=== PATIENT | female | born 1975 | race Caucasian/White ===

== ENCOUNTER 2018-06-25 | Emergency (ER) | payer OTHER ==
[~2018-06-25] MED LIST: ADDERALL 20 MG20 MG PO; BACTRIM DS 8001 TA1 PO; CIPRO; CIPROFLOXACIN500 MG PO; COLACE100 MG PO; CYCLOBENZAPRINE10 MG PO; HYDROCODONE BIT1 T11 PO; KEFLEX500 MG PO; MOTRIN800 MG PO; NKHM; PERCOCET 325 MG1 TA2 PO; PYRIDIUM200 MG PO; TESSALON PERLE200 MG PO; ZITHROMAX Z PA250 MG PO; ZITHROMAX250 MG PO; ZOLPIDEM5 MG PO
[2018-06-25 18:15] LABS: BASO # 0.1 10*3/uL (0.0-0.1); BASO % 0.5 % (0.0-1.0); EOS # 0.2 10*3/uL (0.0-0.4); EOS % 1.6 % (1.0-4.0); HEMATOCRIT 44.5 % (37.0-47.0); HEMOGLOBIN 13.9 g/dl (12.0-16.0); LYMPH # 2.8 10*3/uL (1.3-4.4); LYMPH % 25.3 % (27.0-41.0); MEAN CELL VOLUME 94.3 fl (81.0-99.0); MEAN CORPUSCULAR HGB 29.4 pg (27.0-31.0); MEAN CORPUSCULAR HGB CONC 31.2 g/dl (33.0-37.0); MEAN PLATELET VOLUME 8.7 fl (9.6-12.3); MONO # 0.5 10*3/uL (0.1-1.0); MONO % 4.8 % (3.0-9.0); NEUT # 7.4 10*3/uL (2.3-7.9); NEUT % 67.5 % (47.0-73.0); PLATELET COUNT AUTOMATED 382 10*3/uL (130-400); RED BLOOD COUNT 4.72 10*6/uL (4.10-5.10); RED CELL DISTRI WIDTH 14.1 % (0-14.5); WHITE BLOOD COUNT 10.9 10*3/uL (4.8-10.8)
[2018-06-25 18:33] LABS: ALKALINE PHOSPHATASE 53 U/L (45-117); BUN 17 mg/dl (7-24); CHLORIDE 109 mmol/L (98-107); CREATININE 0.73 mg/dL (0.55-1.02); POTASSIUM 3.6 mmol/L (3.5-5.1); SGOT/AST 14 IU/L (3-35); SGPT/ALT 25 U/L (12-78); SODIUM 143 mmol/L (136-145); TOTAL PROTEIN 7.4 gm/dL (6.4-8.2)
[2018-06-25 18:34] LABS: BILIRUBIN NEGATIVE (NEGATIVE); BLOOD NEGATIVE (NEGATIVE); CLARITY CLEAR (CLEAR); COLOR YELLOW (YELLOW); GLUCOSE NEGATIVE (NEGATIVE); KETONE NEGATIVE (NEGATIVE); LEUKO ESTERASE NEGATIVE (NEGATIVE); NITRITE NEGATIVE (NEGATIVE); UROBILINOGEN 0.2 E.U./dl (0.2-1.0)
[2018-06-25 18:49] LABS: BACTERIA TRACE; EPITHELIAL CELLS 30-35; RBC 0-2 rbc/hpf (0-2); WBC 0-2 wbc/hpf (0-5)
[2018-06-25] MEDS ORDERED: ROBAXIN500 M1 PO (20:28)
[2018-06-25] MEDS ORDERED: NAPROSYN500 MG PO (20:28)
== END 2018-06-25 20:40 | disposition home or self-care (01) ==
PROVIDERS: Nurse Practitioner Family
DX: S39.011A Strain of muscle, fascia and tendon of abdomen, initial encounter (principal); Z87.442 Personal history of urinary calculi; Z91.041 Radiographic dye allergy status; Z88.0 Allergy status to penicillin; Z88.1 Allergy status to other antibiotic agents; Z88.2 Allergy status to sulfonamides; Z79.899 Other long term (current) drug therapy; X58.XXXA Exposure to other specified factors, initial encounter; Y93.89 Activity, other specified; Y92.89 Other specified places as the place of occurrence of the external cause; Y99.8 Other external cause status

== ENCOUNTER 2019-09-16 18:56 | Emergency (ER) | payer BC ==
[~2019-09-16] VITALS: Ht 170.1 cm; Wt 49.9 kg
[~2019-09-16 18:56] MED LIST changes: +NAPROSYN500 MG PO; +ROBAXIN500 M1 PO
[2019-09-16] MEDS ORDERED: MIXED AMPHETAMI30 MG PO (19:01)
[2019-09-16] MEDS ORDERED: VIBRAMYCIN100 MG PO ×2 (20:19→20:21)
== END 2019-09-16 20:25 | disposition home or self-care (01) ==
LOC: ED 18:56
DX: B34.9 Viral infection, unspecified (principal); R06.02 Shortness of breath

== ENCOUNTER → 2019-12-20 | Outpatient (CLI) | payer BC ==
[~2019-12-20] MED LIST changes: +MIXED AMPHETAMI30 MG PO; +VIBRAMYCIN100 MG PO
== END | disposition home or self-care (01) ==
LOC: CT 10:55
DX: J43.9 Emphysema, unspecified (principal); J98.4 Other disorders of lung; J98.11 Atelectasis

== ENCOUNTER 2020-01-27 16:17 | Emergency (ER) | payer BC ==
[~2020-01-27] VITALS: Ht 172.7 cm; Wt 49.9 kg
[2020-01-27] MEDS ORDERED: IBUPROFEN600 MG PO ×2 (16:45→16:46)
== END 2020-01-27 17:09 | disposition home or self-care (01) ==
LOC: ED 16:17
DX: K04.7 Periapical abscess without sinus (principal); K05.319 Chronic periodontitis, localized, unspecified severity; Z91.041 Radiographic dye allergy status; Z88.0 Allergy status to penicillin; Z88.1 Allergy status to other antibiotic agents; Z88.2 Allergy status to sulfonamides; Z79.899 Other long term (current) drug therapy